=== PATIENT | female | born 1995 | race Caucasian/White ===

== ENCOUNTER 2016-07-18 13:54 | Emergency (ER) | payer SELFPAY ==
[2016-07-18 14:14] VITALS: BP 121/76
--- OUTSIDE RECORDS SUMMARY | 2016-07-18 14:34 | XMS REPORT | Continuity of Care Document ---
:1995 Author Organization [facility] [place] [address] Care Team Providers Name Role Phone Provider, None Per Patient Primary Care Provider Unavailable Source Comments This disclosure is being made pursuant to the [employer] program and maynot contain all information available regarding this patient.[facility] Active Allergies and Adverse Reactions Not on File Current Medications Be aware that medications may not be up to date as of this document. Alwaysverify current medications with the patient. Not on file Active Problems Not on file Social History Tobacco Use Types Packs/Day Years Used Date Never Assessed Plan of Care Health Maintenance Due Date Last Done Comments HPV Vaccine (9-26YO) (1 of 3 - Female/Unknown 3 Dose 2005 Series) Chlamydia Screening 2010 Tetanus/Pertussis (1 - Tdap) 2013 Retired-INFLUENZA VACCINE 02/03/2015 Pap Smear 2015 Results from Last 3 Months Not on file
--- OUTSIDE RECORDS SUMMARY | 2016-07-18 14:34 | XMS REPORT | CCD ---
:1995 Author Name RUSS ROSE Address [address] [facility] Unavailable [place], [place] [id number] Care Team Providers Name Role Phone QUINTON BAZAN MD Attending Physician Unavailable QUINTON BAZAN MD Er Physician 1 Unavailable OCTAVIO Burch Registered Nurse Unavailable Vital Signs Vital Sign Value Unit Height 64 in Weight Measured 140 lbs BMI (Body Mass Index) 24.03 kg/m^2 BSA (Body Surface Area) 1.69 m^2 Allergies Allergy Code Allergy Type Reaction Status No Known Allergies 0 No known allergies Active Procedures Procedure Code Procedure Type Date APPLICATION OF SPLINT 9354 ICD-9 CM, Volume 3 06/21/2013 KNEE 3 VWS LT [id number] SNOMED CT 06/21/2013 History of Immunizations Unknown. Problems Problem Code Start Date Resolved Date Status Sprain of unspecified site of knee and leg [id number] 06/21/2013 Active state, incidental [id number] Active Results Unknown. Medications Unknown. Medications Administered Unknown. Encounters Encounter Diagnosis Diagnosis Code Start Date SPRAIN OF KNEE & LEG NOS 8449 06/21/2013 Social History Smoking Status Code Start Date End Date Never smoker [id number] Patient Decision Aids Unknown. Instructions You were admitted to [facility] on 06/21/2013 with a principle diagnosis of SPRAIN OF KNEE & LEG NOS. You had the following procedures done:APPLICATION OF SPLINT You were discharged from [facility] on 06/21/2013. Should you have any questions prior to discharge, please contact a member of your healthcare team. If you have left the hospital and have any questions, please contact your primary care physician. Chief Complaint and Reason For Visit Chief Complaint Date of Onset LT KNEE PAIN 22 WEEKS Function Status Unknown. Plan of Care Unknown. Referral/Transition of Care Unknown.
--- OUTSIDE RECORDS SUMMARY | 2016-07-18 14:34 | XMS REPORT | Continuity of Care Document ---
:1995 Author Organization [facility] ([facility]) Address [address] [place] [address] Phone [phone] Care Team Providers Name Role Phone Dayana Lory Primary Care Provider [phone] Source Comments This disclosure is being made pursuant to the Care Everywhere program, applicable federal and state laws, and may not contain all informaitonavailable regarding this patient.[facility] ([facility]) Active Allergies and Adverse Reactions Allergen Noted Date Severity Reactions Comments Coconut 02/17/2016 Urticaria (Hives) Latex 02/17/2016 Urticaria (Hives) [place] 02/17/2016 Urticaria (Hives) Current Medications Prescription Sig. Disp. Refills Start Date End Date Status oxyCODONE-acetaminoph Take 1-2 tablets 40 tablet 0 02/20/2016 Active en 5-325 mg per by mouth every 4 tablet hours as needed. Do NOT exceed 4000 mg of acetaminophen per 24 hours. Earliest Fill Date: 02/20/16 ibuprofen 600 mg Take 1 tablet (600 120 tablet 2 02/20/2016 Active tablet mg total) by mouth every 6 hours as needed. docusate 100 mg Take 1 capsule 120 capsule 2 02/20/2016 Active capsule (100 mg total) by mouth 2 times daily. cyclobenzaprine 5 mg Take 1 tablet (5 120 tablet 1 02/20/2016 Active tablet mg total) by mouth every 8 hours as needed for Muscle spasms. ferrous gluconate 324 Take 1 tablet (324 120 tablet 2 02/20/2016 Active mg (38 mg iron) mg total) by mouth tablet daily. SERTraline 25 mg Take 1 tablet (25 60 tablet 3 03/01/2016 Active tablet mg total) by mouth daily for 1 week then take 2 tablets daily thereafter. hydrOXYzine HCl 25 mg Take 1 tablet (25 60 tablet 3 03/01/2016 Active tablet mg total) by mouth every 6 hours as needed for Anxiety. May take 2 tablets at bedtime for sleep as needed. Active Problems Problem Noted Date Status post section 02/20/2016 Herniated lumbar intervertebral disc 02/19/2016 Asthma 02/19/2016 History of section 02/17/2016 premature rupture of membranes (PPROM) with unknown onset of labor Resolved Problems Problem Noted Date Resolved Date premature rupture of membranes (PPROM) delivered, 02/17/20162015 current hospitalization Most Recent Encounters Date Type Specialty Providers Description 04/21/2016 Office Visit Orthopaedic Michael Box MD Subj: Upcoming Appt Reminder Immunizations Name Dates Previously Given Next Due DTP/Hib 03/06/1995 Polio, unspecified 03/06/1995 Rho (D) Immune Globulin, IM (Rhogam) 02/17/2016 Social History Tobacco Use Types Packs/Day Years Used Date Never Smoker Smokeless Tobacco: Never Used Alcohol Use Drinks/Week oz/Week Comments Yes Occasional <1 time a year Last Filed Vital Signs Vital Sign Reading Time Taken Blood Pressure 123/83 02/23/2016 2:23 PM CDT Pulse 97 02/23/2016 2:23 PM CDT Temperature 36 C (96.8 F) 02/23/2016 2:23 PM CDT Respiratory Rate 16 02/20/2016 8:31 AM CDT Height 1.651 m (5' 5") 02/17/2016 12:52 AM CDT Weight 77.4 kg (170 lb 10.2 oz) 02/23/2016 2:23 PM CDT Body Mass Index 28.4 02/23/2016 2:23 PM CDT Oxygen Saturation 98% 02/19/2016 9:25 PM CDT Plan of Care Health Maintenance Due Date Last Done Comments Hepatitis B Vaccine (1 of 3 - Primary Series) 1994 HPV Vaccine (1 of 3 - Female/Unknown 3 Dose Series) 2005 Tdap Vaccine 2005 Cervical Cancer Screening 2012 Lipid Disorder Screening 2012 MMR Vaccine 2012 Td Vaccine 2012 03/06/1995 Varicella Vaccine (1 of 2 - Adult - No Evidence of 2012 Immunity) Pneumococcal Vaccine (1 of 1 - PPSV23) 2013 Influenza Vaccine: Seasonal (#1) 01/04/2016 Results from Last 3 Months Not on file
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
[2016-07-18] MEDS ORDERED: PENICILLIN G BENZATHINE 2 ML SYRG IM ONE (15:22)
[2016-07-18] MEDS: PENICILLIN G BENZATHINE 2 ML SYRG IM ONE (15:24)
== END 2016-07-18 15:39 | disposition home or self-care (01) ==
LOC: ER 13:54
DX: J02.0 Streptococcal pharyngitis (principal); J20.9 Acute bronchitis, unspecified; J01.00 Acute maxillary sinusitis, unspecified

== ENCOUNTER 2016-09-05 10:44 | Emergency (ER) | payer MEDICAID ==
[2016-09-05] MEDS ORDERED: METOCLOPRAMIDE HCL 5 MG/ML VIAL IM ONE (12:28)
[2016-09-05] MEDS ORDERED: diphenhydrAMINE HCL 50 MG/ML VIAL IM ONE (12:28)
[2016-09-05] MEDS ORDERED: KETOROLAC TROMETHAMINE 60 MG/2 ML VIAL IM ONE ×2 (12:28→12:48)
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
[2016-09-05 12:44] LABS: Hematocrit 40.4 % (37.0-47.0); Hemoglobin 13.6 gm/dL (12.5-16.0); Mean Cell Volume 86.7 fl (78-100); Mean Corpuscular Hemoglobin 29.2 pg (27-31); Mean Corpuscular Hgb Conc 33.7 g/dl (32-36); Mean Platelet Volume 10.4 fl (6.0-9.5); Neutrophil # 6.2 K/mm3 (1.3-6.0); Platelet Count 233 K/mm3 (150-450); Red Blood Count 4.66 M/mm3 (4.2-5.4); Red Cell Distribution Width 13.3 % (11.5-14.0); Urine Bilirubin Negative (NEGATIVE); Urine Blood Negative /ul (NEGATIVE); Urine Ketone Negative (NEGATIVE); Urine Nitrite Negative (NEGATIVE); Urine Protein Negative (NEGATIVE); Urine Urobilinogen Normal (NORMAL); White Blood Count 8.4 K/mm3 (4.0-10.5)
[2016-09-05] MEDS ORDERED: METOCLOPRAMIDE HCL 5 MG/ML VIAL ONE (12:48)
[2016-09-05] MEDS ORDERED: diphenhydrAMINE HCL 50 MG/ML VIAL ONE (12:48)
[2016-09-05 12:53] LABS: Urine Appearance Clear; Urine Bacteria TRACE; Urine Color Yellow; Urine RBC None Seen /hpf (0-5); Urine WBC None Seen /hpf (0-5)
[2016-09-05 13:02] LABS: Albumin * 3.1 gm/dl (3.4-5.0); Anion Gap 13.3 mmol/L (6.8-13.8); BUN/Creatinine Ratio 12.8 (9.0-21.6); Bilirubin, Total 0.4 mg/dL (0.0-1.1); Ca. Corrected For Albumin 9.4 mg/dL (8.4-10.2); Carbon Dioxide 25.5 mmol/L (24-32.6); Potassium 3.8 mmol/L (3.4-4.6); Total Protein 7.3 gm/dL (6.2-8.2)
--- OUTSIDE RECORDS SUMMARY | 2016-09-05 13:34 | XMS REPORT | Continuity of Care Document ---
:1995 Author Organization [facility] [place] [address] Care Team Providers Name Role Phone Provider, None Per Patient Primary Care Provider Unavailable Source Comments This disclosure is being made pursuant to the WorkMe[employer] program and maynot contain all information available regarding this patient.[facility] Active Allergies and Adverse Reactions Not on [...]
--- OUTSIDE RECORDS SUMMARY | 2016-09-05 13:34 | XMS REPORT | Continuity of Care Document ---
:1995 Author Organization [facility] ([facility]) Address [address] [place] [address] Phone [phone] Care Team Providers Name Role Phone Dayana Lory Primary Care Provider [phone] Source Comments This disclosure is being made pursuant to the Care Everywhere program, applicable federal and state laws, and may not contain all informaitonavailable regarding this patient.[facility] ([facility]) Active Allergies and Adverse Reactions Allergen Noted Date Severity Reactions Comments Coconut 02/17/2016 Urticaria (Hives) Latex 02/17/2016 Urticaria (Hives) [place] 02/17/2016 Urticaria (Hives) Current Medications Prescription Sig. [...] of membranes (PPROM) delivered, 02/17/20162015 current hospitalization Immunizations Name Dates Previously Given Next Due [...]
[2016-09-05 15:30] VITALS: BP 100/47
[2016-09-05] MEDS ORDERED: RHO(D) IMMUNE GLOBULIN 300 MCG DISP.SYRIN IM ONE (16:00)
== END 2016-09-05 15:46 | disposition home or self-care (01) ==
LOC: ER 10:44
DX: O26.892 Other specified pregnancy related conditions, second trimester (principal); R11.2 Nausea with vomiting, unspecified; R19.7 Diarrhea, unspecified; R51 Headache; Z3A.18 18 weeks gestation of pregnancy
CPT/HCPCS: 36415; 76816; 80053; 81001; 84702; 84703; 85025; 87400; 96372; 99284; J2790

== ENCOUNTER 2016-10-26 19:14 | Emergency (ER) | payer MEDICAID ==
[2016-10-26 20:25] VITALS: BP 123/80
--- OUTSIDE RECORDS SUMMARY | 2016-10-26 20:45 | XMS REPORT | Continuity of Care Document ---
:1995 Author Organization [facility] ([facility]) Address [address] [place] [address] Phone [phone] Care Team Providers Name Role Phone Dayana Lory Primary Care Provider [phone] Source Comments This disclosure is being made pursuant to the Care Everywhere program, applicable federal and state laws, and may not contain all informaitonavailable regarding this patient.[facility] ([facility]) Active Allergies and Adverse Reactions Allergen Noted Date Severity Reactions Comments Coconut 02/17/2016 Urticaria (Hives) Latex 02/17/2016 Urticaria (Hives) [place] 02/17/2016 Urticaria (Hives) Current Medications Prescription Sig. [...]
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
== END 2016-10-26 20:59 | disposition home or self-care (01) ==
LOC: ER 19:14
DX: J06.9 Acute upper respiratory infection, unspecified (principal); O09.893 Supervision of other high risk pregnancies, third trimester; O99.713 Diseases of the skin and subcutaneous tissue complicating pregnancy, third trimester; Z3A.00 Weeks of gestation of pregnancy not specified; B97.6 Parvovirus as the cause of diseases classified elsewhere

== ENCOUNTER 2016-12-14 19:29 | Observation (INO) | payer MEDICAID ==
[2016-12-14] MEDS ORDERED: BETAMETH ACET/BETAMET SOD PHOS 6 MG/ML VIAL ONE (20:08)
[2016-12-14] MEDS ORDERED: RINGERS SOLUTION,LACTATED 1,000 ML IV PRN (20:26)
[2016-12-14] MEDS ORDERED: RINGERS SOLUTION,LACTATED 1,000 ML IV ONE (20:30)
[2016-12-14] MEDS ORDERED: PENICILLIN G POTASSIUM 5 MILLIONUNT in DEXTROSE 5 % IN WATER 100 ML IV ONE ×2 (20:45)
[2016-12-14] MEDS ORDERED: BETAMETH ACET/BETAMET SOD PHOS 6 MG/ML VIAL IM ONE (21:00)
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
[2016-12-14] MEDS ORDERED: AZITHROMYCIN 500 MG in DEXTROSE 5 % IN WATER 250 ML IV ONE ×2 (21:15)
--- NOTE | 2016-12-14 21:21 | DS ---
(1) premature rupture of membranes in third trimester Problem: Acute (2) Previous delivery affecting Problem: Acute (3) History of delivery, currently in third trimester Problem: Acute Description of Stay: patient came in by ambulance with complaints of leaking fluid and pelvic pressure. rupture of membrane was confirmed. patient transferred to [facility] by ambulance in stable condition. Procedures Performed: none Discharge Disposition: [facility] Disposition: [facility] Condition: Good Discharge Activity: Other - bed rest Discharge Diet: NPO Referrals: Lory Anne ARNP [Primary Care Provider] - Complete Home Medications List: Complete Home Medication List: Acetaminophen [Tylenol] 650 tab PO PRN PRN 12/14/16 Hydroxyprogesterone Caproat/Pf [[place]] 250 mg IM ONCE MDD pt takes 1/week 12/14
== END 2016-12-14 21:10 | disposition short-term general hospital (02) ==
LOC: OB 19:29 → INTOOBSV 19:29
PROVIDERS: ADMIT Obstetrics & Gynecology; ATTEND Obstetrics & Gynecology
DX: O42.912 Preterm premature rupture of membranes, unspecified as to length of time between rupture and onset of labor, second trimester (principal); Z3A.32 32 weeks gestation of pregnancy; O34.219 Maternal care for unspecified type scar from previous cesarean delivery
CPT/HCPCS: 59025; 87081; 96365; 96372; G0378; G0379